=== PATIENT | male | born 1930 | race Caucasian/White ===

== ENCOUNTER 2017-01-18 12:21 | Outpatient (CLI) | payer OTHER, MEDICARE ==
--- NOTE | 2017-01-18 16:15 | DIAGNOSTIC IMAGING REPORT ---
PROCEDURE: CT SINUS/FACIAL BONES W/O CONT CLINICAL INDICATION: SINUS PAIN,MASS TECHNIQUE: Noncontrast axial CT images through the sinuses. Coronal and sagittal reformations were created. COMPARISON: 04/28/2015 FINDINGS: Partially imaged ovoid soft tissue mass measuring approximately 3.1 x 1.7 cm adjacent to the left maxilla is redemonstrated. There is mild overlying skin thickening. Much of its internal characteristics are obscured by adjacent beam hardening artifact from dental hardware, and limited secondary to lack of intravenous contrast. The visible cortex of the left maxilla is without significant periosteal reaction, however this is incompletely evaluated given beam hardening. The frontal sinuses are normally aerated. The outflow tracts are patent. Sphenoid sinuses and their outflow tracts are patent. No significant mucosal thickening or opacification of ethmoid air cells. The maxillary sinuses are normally aerated without mucosal thickening. The outflow tracts are patent. The nasal septum is minimally leftward deviated Nasal passages are patent with slight mulberry middle and inferior nasal turbinate morphology. No facial bone fractures. Temporomandibular joints are normally aligned. Bony orbits are intact. Orbital soft tissues appear normal. The visible glandular structures are symmetric. IMPRESSION: 1. Incompletely visualized, and incompletely characterized soft tissue mass adjacent to the left maxilla. No apparent significant change in size compared to the prior study. Given incomplete imaging of this soft tissue mass in question, facial CT with contrast at no charge to the patient is recommended. 2. No evidence of sinus disease. 3. Morphology of nasal turbinate suggestive of mild allergic rhinitis. Correlate clinically. All CT scans at this facility use dose modulation, iterative reconstruction, and/or weight-based dosing when appropriate to reduce radiation dose to as low as reasonably achievable.
--- NOTE | 2017-01-18 16:56 | DIAGNOSTIC IMAGING REPORT ---
PROCEDURE: US ECHOCARDIOGRAM INDICATION: Chronic diastolic heart failure TECHNIQUE: This is a technically adequate echocardiogram. The patient is in sinus rhythm. COMPARISON: None FINDINGS: Left ventricle: Normal size with end diastolic dimension of 4.3 cm. There is mild concentric left ventricular hypertrophy. Left ventricular ejection fraction is estimated at 65%. There is grade 1 diastolic dysfunction. Wall motion is normal. Right ventricle: Normal size and function. Left atrium mildly dilated Right atrium: Mildly dilated. Aortic valve: Trileaflet with no stenosis or insufficiency. There is mild sclerosis. Mitral valve: Structurally normal with trace insufficiency. Tricuspid valve: Structurally normal with trace insufficiency. Pulmonary artery pressure estimated at 16 mmHg. Pulmonic valve colon grossly normal in structure and function. Pericardium: No effusion Aorta: Ascending aorta is upper limits of normal in size and 3.7 cm. IMPRESSION: Normal left ventricular ejection fraction at 65% Grade 1 diastolic dysfunction Mild concentric left ventricular hypertrophy All valves normal in function
== END 2017-01-18 23:00 ==
LOC: CT SRH 12:21 → US SRH 13:00 → CT SRH 23:00
DX: I50.32 Chronic diastolic (congestive) heart failure (principal); R51 Headache; I51.7 Cardiomegaly; R93.0 Abnormal findings on diagnostic imaging of skull and head, not elsewhere classified

== ENCOUNTER 2017-01-23 11:26 | Outpatient (CLI) | payer OTHER, MEDICARE ==
--- NOTE | 2017-01-23 18:42 | DIAGNOSTIC IMAGING REPORT ---
PROCEDURE: CT SINUS/FACIAL BONES W/CONT CLINICAL INDICATION: Facial mass, NO CHARGE EXAM TECHNIQUE: 125 ml of Isovue 300 injected intravenously and axial images were obtained through the face with coronal and sagittal reformations. Angled axial sequences were obtained to avoid dental artifact. COMPARISON: 01/18/2017 and 04/28/2015 FINDINGS: There is a microlobulated soft tissue mass arising immediately adjacent to the left maxillary gum line measuring approximately 3.5 x 1.6 by about 4.0 cm. Immediately postcontrast, small serpiginous vascular structures are seen internally. Little significant enhancement above normal muscle. No suspicious internal necrosis. No surrounding inflammatory changes. The mass appears to extend superficially to the skin surface anteriorly. No visible skin thickening. The visible underlying mandible and maxillary bone demonstrate normal cortical thickness without osteitis or erosive change. IMPRESSION: 1. Fairly benign appearing left maxillary soft tissue mass with internal vascularity and extension to the skin surface. No underlying osseous erosion. Given stability and clinical presentation, hemangioma is suspected. All CT scans at this facility use dose modulation, iterative reconstruction, and/or weight-based dosing when appropriate to reduce radiation dose to as low as reasonably achievable.
== END 2017-01-23 23:00 ==
LOC: LAB SRH 11:26 → CT SRH 11:26
DX: R51 Headache (principal); R22.0 Localized swelling, mass and lump, head
CPT/HCPCS: 90074; 91631; 92560